=== PATIENT | female | born 1985 | race Caucasian/White ===

== ENCOUNTER 2016-09-30 21:48 | Emergency (ER) | payer OTHER ==
[2016-09-30] MEDS ORDERED: KETOROLAC 60 MG/2 ML VIAL IM ONE (23:08)
[2016-09-30] MEDS ORDERED: LIDOCAINE 2% VISC 15 ML UDC ONE (23:08)
== END 2016-09-30 23:33 | disposition home or self-care (01) ==
LOC: ER 21:48
CPT/HCPCS: 96372